=== PATIENT | female | born 1995 | race Caucasian/White ===

== ENCOUNTER 2020-06-20 19:00 | Emergency (ER) | payer SELFPAY ==
[2020-06-20 19:04] VITALS: BP 145/113; PULSE 77; RESP 14; TEMP 35.9; O2SAT 100
--- NOTE | 2020-06-20 19:39 | ED.HEATRA ---
HPI - Head Injury General Chief complaint: Head Injury Stated complaint: fall, head injury Time Seen by Provider: 06/20/20 19:03 History of Present Illness HPI Narrative: 24 yo female w/ h/o htn presents to the ED for a head injury. She fell and struck her head on a metal table leg around 1800 tonight. She was reportedly confused for about 30 minutes afterwards and continues to feel foggy. She also reports headache, dizziness, and dry heaves. She took 800 mg ibuprofen and the head ache has improved. No weakness, numbness, LOC. She is not on a blood thinner. Related Data Allergies Allergy/AdvReac Type Severity Reaction Status Date / Time Penicillins Allergy Hives Verified 06/20/20 19:50 Review of Systems Review of Systems: All systems reviewed & are unremarkable except as noted in HPI and below Constitutional: Constitutional: Denies chills, Reports fatigue, Denies fever(s) and Denies weakness Eyes: Eyes: Reports photophobia ENT: Reports dizziness Cardiovascular: Cardiovascular: Denies chest pain Respiratory: Respiratory: Denies dyspnea Gastrointestinal: Gastrointestinal: Reports nausea and Denies vomiting Genitourinary: Genitourinary: Reports no additional female genitourinary complaints Musculoskeletal: Musculoskeletal: Denies back pain Neurologic: Reports as per HPI [facility] Past Medical History Medical History (Updated 06/20/20 @ 20:04 by Ted Morrissey MD) HTN (hypertension) Social History Social History (Updated 06/20/20 @ 20:05 by Ted Morrissey MD) Smoking status: Never smoker Substance use: never Gender identity (if verbalized by the patient): Female Sexual Orientation (if Verbalized by the Patient): Straight or Heterosexual Exam Const: General: healthy appearing, no acute distress and alert Orientation/consciousness: patient oriented x3 HENMT: Head: normal to inspection Eyes: Conjunctivae: conjunctivae normal Pupils: Equal, round and reactive pupils present EOM: EOMs intact bilaterally Neck: Neck: normal visual inspection and no lymphadenopathy Chest: Chest palpation & inspection: no tenderness Resp: Effort & Inspection: normal respiratory effort Auscultation: clear to auscultation bilaterally, no rales, no rhonchi and no wheezes Cardio: Jugular venous distension: no JVD Rate: regular rate Rhythm: regular rhythm Heart sounds: no murmurs Skin: General skin exam: normal color Neuro: General: patient oriented x3, moves all extremities and no focal motor deficits Cranial nerves: Yes CN's II-XII intact bilaterally and Yes Nystagmus not present Cognition (Neuro): normal cognition Speech: normal speech Gait exam (Neuro): Normal gait present Coordination: [id number] test normal Extrem: General: no edema Psych: Appearance: well kempt Affect: normal affect Course Vital Signs Vital signs: Vital Signs Temperature 35.9 C L 06/20/20 19:04 Pulse Rate 77 06/20/20 19:04 Respiratory Rate 14 06/20/20 19:04 Blood Pressure 145/113 H 06/20/20 19:04 Pulse Oximetry 100 06/20/20 19:04 Temperature 35.9 C L 06/20/20 19:04 Pulse Rate 77 06/20/20 19:04 Respiratory Rate 14 06/20/20 19:04 Blood Pressure 145/113 H 06/20/20 19:04 Pulse Oximetry 100 06/20/20 19:04 MDM - Head Injury MDM Narrative Medical decision making narrative: reassuring exam. No indication for imaging. She does not want any further treament at this time. I will given her information for symptomatic relief. Differential Diagnosis Differential diagnosis: Likely concussion without loss of consciousness and closed head injury Discharge Plan Discharge Clinical Impression: Concussion without loss of consciousness Qualifiers: Encounter type: initial encounter Qualified Code(s): S06.0X0A - Concussion without loss of consciousness, initial encounter Patient Disposition: Home, Self-Care Condition: Stable Instructions: Concussion (ED) Additional Instructions: You
[2020-06-20 20:15] VITALS: BP 126/71; PULSE 72; RESP 16; O2SAT 97
== END 2020-06-20 20:15 | disposition home or self-care (01) ==
PROVIDERS: Emergency Provider Emergency Medicine
DX: S06.0X0A Concussion without loss of consciousness, initial encounter (principal); I10 Essential (primary) hypertension; W01.190A Fall on same level from slipping, tripping and stumbling with subsequent striking against furniture, initial encounter
CPT/HCPCS: 99283

== ENCOUNTER 2022-10-18 08:09 | Emergency (ER) | payer OTHER, SELFPAY ==
--- NOTE | 2022-10-18 08:11 | ED.SKABFB ---
HPI - Skin/Abscess/Foreign Bdy General Chief complaint: Skin/Abscess/Foreign Body Stated complaint: Rash Time Seen by Provider: 10/18/22 08:10 Source: patient Mode of arrival: ambulatory Limitations: no limitations History of Present Illness HPI narrative: Thuy is a 27-year-old female patient presenting to the clinic today with complaints of a rash x6 days. She reports rash is not itchy or painful. Rashes red circular and scaly. She reports that she has recently changed soaps and has been using and non scented soaps since the rash occurred. States that the rash seems to be spreading. Rash started under her breast and has spread to her arms, back, abdomen, and buttocks. Patient reports that she started a new job and the client has a cat that has patches of hair loss Related Data Allergies Allergy/AdvReac Type Severity Reaction Status Date / Time Penicillins AdvReac Mild Hives Verified 10/18/22 08:11 Review of Systems Review of Systems: Pertinent positives per HPI. Patient denies any fever, chills, headache, visual changes, dizziness, cough, runny nose, sore throat, shortness of breath, chest pain, palpitations, nausea, vomiting, diarrhea, constipation, abdominal pain, or any urinary issues. [facility] Past Medical History Medical History HTN (hypertension) Social History Social History Smoking status: Never smoker Substance use: never Gender identity (if verbalized by the patient): Female Sexual Orientation (if Verbalized by the Patient): Straight or Heterosexual Comments At the time of my signature, I reviewed and agree with the nursing past medical, surgical, social, and family history. There is no relevant family history pertinent to the patient complaint. Exam Narrative: General: Well-developed, well nourished, in no apparent distress Head: Normocephalic, atraumatic. Cardio: Regular rate and rhythm, s1 and s2 normal, no murmur appreciated. Resp: Clear to auscultation bilaterally, no rhonchi, rales, wheezing or rubs. Integumentary: [place], warm, and dry, intact without lesion, red, mildly raised, non itching, nonpainful, scaly appearing circular rash under breast, arms, abdomen, back, and buttocks Course Course Emergency Course: Portions of this record may have been created with voice recognition software. Level of Care: Express Care Visit Vital Signs Vital signs: Vital signs reviewed MDM - Skin/Abscess/Foreign Bdy MDM Narrative Medical decision making narrative: At the time of visit patient is resting comfortably on the exam table. I suspect the patient may have tinea corpus. Will send in prescription for Diflucan. Will also send in a prescription for some prednisone taper dose if Diflucan does not help patient may try the prednisone. Did explain to the patient that the Diflucan prescription will be weekly x4 weeks. Supportive measures were discussed with the patient and she voiced understanding of discharge instructions. Contact/transmission information was printed from the CDC regarding tinea corpus and given to the patient. Differential Diagnosis Differential diagnosis: Likely abscess of skin or subcutaneous tissue, viral exanthem, urticaria, herpes zoster, allergic reaction to drug, cellulitis, eczema, insect bites, impetigo and contact dermatitis Discharge Plan Discharge Clinical Impression: Tinea corporis Patient Disposition: Home, Self-Care Condition: Stable Instructions: Antibiotic Form, Tinea Corporis (ED) Additional Instructions: I suspect you may have tinea corporis which is ringworm Recommend checking your animals for any signs of ringworm and treat them a if necessary Take fluconazole as prescribed-if rash does not resolve in 4 weeks recommend taking the prednisone May take Benadryl 25-50 mg every 6 hours as needed for itching Follow-u
[2022-10-18 08:19] VITALS: BP 118/80; PULSE 66; RESP 18; TEMP 36.4; O2SAT 99
== END 2022-10-18 08:49 | disposition home or self-care (01) ==
PROVIDERS: Emergency Provider Nurse Practitioner Family
DX: B35.4 Tinea corporis (principal); I10 Essential (primary) hypertension
CPT/HCPCS: 99213; G0463

== ENCOUNTER 2022-10-23 16:22 | Emergency (ER) | payer OTHER, SELFPAY ==
--- NOTE | 2022-10-23 16:28 | ED.SKABFB ---
HPI - Skin/Abscess/Foreign Bdy General Chief complaint: Skin/Abscess/Foreign Body Stated complaint: rash Time Seen by Provider: 10/23/22 16:29 Source: patient Mode of arrival: ambulatory Limitations: no limitations History of Present Illness HPI narrative: Thuy is a 27-year-old female patient presenting to clinic today with complaints of a rash that is not improving with Diflucan. She was seen by myself last week and diagnosed with tinea corpus. Was given prescription for Diflucan. States the rash has not really improved and she developed a pustule under her breast that had popped. Is concerned that she may have been bit by a spider. Related Data Allergies Allergy/AdvReac Type Severity Reaction Status Date / Time Penicillins AdvReac Mild Hives Verified 10/23/22 16:40 Review of Systems Review of Systems: Pertinent positives per HPI. Patient denies any fever, chills, headache, visual changes, dizziness, cough, runny nose, sore throat, shortness of breath, chest pain, palpitations, nausea, vomiting, diarrhea, constipation, abdominal pain, or any urinary issues. [facility] Past Medical History Medical History HTN (hypertension) Social History Social History Smoking status: Never smoker Substance use: never Gender identity (if verbalized by the patient): Female Sexual Orientation (if Verbalized by the Patient): Straight or Heterosexual Comments At the time of my signature, I reviewed and agree with the nursing past medical, surgical, social, and family history. There is no relevant family history pertinent to the patient complaint. Exam Narrative: General: Well-developed, well nourished, in no apparent distress Head: Normocephalic, atraumatic. Cardio: Regular rate and rhythm, s1 and s2 normal, no murmur appreciated. Resp: Clear to auscultation bilaterally, no rhonchi, rales, wheezing or rubs. Integumentary: [place], warm, and dry, light brown circular rash with central clearing scaling to torso, breast, back, buttocks, hips. 1 small open sore without drainage/induration under the left breast. Course Course Emergency Course: Portions of this record may have been created with voice recognition software. Level of Care: Express Care Visit Vital Signs Vital signs: Vital signs reviewed MDM - Skin/Abscess/Foreign Bdy MDM Narrative Medical decision making narrative: At the time of visit patient is resting on the exam table. I suspect patient has tinea corpus with a possible skin infection to the left breast. Will send and prescription for mupirocin cream and have the patient continue the Diflucan. Dermatology referral was discussed with the patient Differential Diagnosis Differential diagnosis: Likely abscess of skin or subcutaneous tissue, dermatophytosis, allergic reaction to drug, cellulitis, eczema, insect bites, impetigo and contact dermatitis Discharge Plan Discharge Clinical Impression: Tinea corporis, Bacterial skin infection Patient Disposition: Home, Self-Care Condition: Stable Instructions: Antibiotic Form, Tinea Corporis (ED) Additional Instructions: Apply mupirocin to the affected area twice daily x7 days Continue Diflucan as prescribed May take tylenol/motrin for pain Follow-up with dermatology-may call [facility] [phone] Prescriptions: New mupirocin 2 % ointment 1 applic topical BID 7 Days Qty: 22 0RF Follow-up/Referrals: PHYSICIAN,CHILLER OPERATOR [Primary Care Provider] - Time of Disposition: 16:47 Quality NIHSS Nursing Documentation ED NIHSS nursing documentation: reviewed/agree
[2022-10-23 16:33] VITALS: BP 123/81; PULSE 62; RESP 18; TEMP 36.6; O2SAT 99
== END 2022-10-23 17:00 | disposition home or self-care (01) ==
PROVIDERS: Emergency Provider Nurse Practitioner Family
DX: B35.4 Tinea corporis (principal); L08.9 Local infection of the skin and subcutaneous tissue, unspecified; B96.89 Other specified bacterial agents as the cause of diseases classified elsewhere; I10 Essential (primary) hypertension
CPT/HCPCS: 99213; G0463

== ENCOUNTER 2024-02-05 10:05 | Emergency (ER) | payer OTHER, SELFPAY ==
--- NOTE | 2024-02-05 10:18 | ED.GENADULT ---
HPI - General Adult General Chief complaint: Upper Respiratory Infection Stated complaint: sore throat Time Seen by Provider: 02/05/24 10:18 Source: patient Mode of arrival: ambulatory Limitations: no limitations History of Present Illness HPI narrative: 28-year-old female patient presents to the [facility] with complaints of a sore throat for the past 5 days along with cough, fatigue and just overall not feeling well. Patient denies any fevers, body aches or chills. Denies any chest pain or shortness of breath. Denies abdominal pain, nausea, vomiting or diarrhea. Patient states she has been taking [id number] DayQuil and NyQuil and Mucinex for her symptoms. Related Data Home Medications Medication Instructions Recorded Confirmed No Home Medications 02/05/24 02/05/24 Allergies Allergy/AdvReac Type Severity Reaction Status Date / Time Penicillins AdvReac Mild Hives Verified 02/05/24 10:08 Review of Systems Review of Systems: CONSTITUTIONAL: Denies fever, chills, or sweats. EYES: Denies visual changes, redness, or discharge. ENT: Positive rhinorrhea, congestion, sore throat, denies otalgia. CARDIOVASCULAR: Denies chest pain, palpitations, or edema. RESPIRATORY: positive cough denies dyspnea. GASTROINTESTINAL: Denies abdominal pain, nausea, vomiting, or diarrhea. GENITOURINARY: Denies dysuria or hematuria. SKIN: Denies rash or itching. MUSCULOSKELETAL: Denies back pain, joint pain, or myalgia. NEUROLOGIC: positive headache, denies numbness, or weakness. PSYCHIATRIC: Denies anxiety or depression. [facility] Past Medical History Medical History HTN (hypertension) Social History Social History Smoking status: Never smoker Substance use: never Gender identity (if verbalized by the patient): Female Sexual Orientation (if Verbalized by the Patient): Straight or Heterosexual Comments At the time of my signature I agree with nursing past medical history, surgical, social, and family history. There is no relevant family history pertinent to the presenting complaint. Exam Narrative: GENERAL: Well-appearing, well-nourished, and in no acute distress. HEAD: Normocephalic, atraumatic. EYES: PERRLA and EOMI. ENT: Nares with erythema edema noted bilaterally, no rhinorrhea or epistaxis. Mucous membranes moist. posterior pharynx with no erythema, tonsillar enlargement, exudates or lesions present. NECK: Supple. No lymphadenopathy CHEST: Clear to auscultation. No respiratory distress. HEART: Regular rate and rhythm. No murmur heard. Normal peripheral pulses. ABDOMEN: Soft, nontender, nondistended, normal active bowel sounds. EXTREMITIES: Normal range of motion. No edema. SKIN: Warm, dry, no rash. NEURO: No focal deficits. Alert and oriented x3. Course Course Level of Care: Express Care Visit Vital Signs Vital signs: Vital Signs Temperature 36.6 C 02/05/24 10:21 Pulse Rate 85 02/05/24 10:21 Respiratory Rate 16 02/05/24 10:21 Blood Pressure 125/90 02/05/24 10:21 Pulse Oximetry 99 02/05/24 10:21 Oxygen Delivery Room Air 02/05/24 10:21 Temperature 36.6 C 02/05/24 10:21 Pulse Rate 85 02/05/24 10:21 Respiratory Rate 16 02/05/24 10:21 Blood Pressure 125/90 02/05/24 10:21 Pulse Oximetry 99 02/05/24 10:21 Oxygen Delivery Room Air 02/05/24 10:21 vital signs reviewed. Medical Decision Making MDM Narrative Medical decision making narrative: Discussed with patient that her rapid strep test today is negative. We will send the swab to the lab for culture if the culture comes back positive at that time we will call her antibiotics. Discussed with patient to use [id number] medication, warm salt water gargles, hot tea and honey to help alleviate her symptoms. Discussed with patient if she has any worsening symptoms such as increase in shortness of breath, wheezing and she would need to be re-evaluated at that time. Differential Diagnosis Differential Diagnosis: Differential diagnosis: Allergic rhinitis, chronic sinusitis, tonsillitis, acute sinusitis, infectious mononucleosis, seasonal influenza, pertussis, diphtheria, meningococcal disease, viral syndrome, viral bronchitis, RSV, COVID-19 Viral pharyngitis, pharyngitis, group A strep, infectious mononucleosis, gonococcal pharyngitis, exudative pharyngitis, oral candidiasis. Chronic allergies, postnasal drip, GERD, abscess formation, but glottitis, retropharyngeal abscess formation, or airway obstruction. Vital Signs Vital Signs: Vital Signs Temperature 36.6 C 02/05/24 10:21 Pulse Rate 85 02/05/24 10:21 Respiratory Rate 16 02/05/24 10:21 Blood Pressure 125/90 02/05/24 10:21 Pulse Oximetry 99 02/05/24 10:21 Oxygen Delivery Room Air 02/05/24 10:21 Temperature 36.6 C 02/05/24 10:21 Pulse Rate 85 02/05/24 10:21 Respiratory Rate 16 02/05/24 10:21 Blood Pressure 125/90 02/05/24 10:21 Pulse Oximetry 99 02/05/24 10:21 Oxygen Delivery Room Air 02/05/24 10:21 Critical Care Time Critical Care Time Critical Care Time: No Discharge Plan Discharge Clinical Impression: Viral URI Pharyngitis Qualifiers: Pharyngitis/tonsillitis etiology: unspecified etiology Qualified Code(s): J02.9 - Acute pharyngitis, unspecified Patient Disposition: Home, Self-Care Condition: Stable Instructions: Antibiotic Form, Viral Syndrome (ED) Additional Instructions: A sore throat can be caused by an infection from a virus or bacteria. Sore throat can also be caused by postnasal drip, allergies, and exposure to smoke. A viral sore throat last 3-4 days and cannot be treated with antibiotics. One type of sore throat virus, infectious mononucleosis ( mono ), can last for 3 weeks and older children. The germs that cause these infections are contagious and can be spread by coughing or sharing drinks or utensils. Contact her primary care physician or go to the ER if: Your trouble breathing or swallowing because her throat is swollen or sore. You're drooling because it hurts too much to swallow. You're painful lump in your throat go away after 5 days. You're fever is higher than 10 2??F or last longer than 3 days. You have confusion. You are blood in your throat. You're sore throat should feel better within 3-5 days without treatment if it is caused by virus. You may need the following: Ibuprofen or Tylenol as needed for pain or fever Gargle warm salt water Drink more liquids, cold or warm drinks may help soothe her throat. Humidifier in your room. Cough drops, ice, soft foods, or popsicles may help soothe her throat. A spoonful of honey could help with inflammation and soothe her throat. Wash her hands with soap and water, do not share food or drinks, throat away her toothbrush after 72 hours. Prescriptions: No Action No Home Medications Follow-up/Referrals: Helio,MD Berger ([place]) [Primary Care Provider] - Time of Disposition: 10:32
[2024-02-05 10:21] VITALS: BP 125/90; PULSE 85; RESP 16; TEMP 36.6; O2SAT 99
[2024-02-07 10:03] LABS: EDSTREPNEGPOS1 Negative (Negative)
== END 2024-02-05 10:32 | disposition home or self-care (01) ==
PROVIDERS: Emergency Provider Nurse Practitioner Family; PCP Internal Medicine
DX: J06.9 Acute upper respiratory infection, unspecified (principal); J02.9 Acute pharyngitis, unspecified; I10 Essential (primary) hypertension
CPT/HCPCS: 87081; 87880; 99213; G0463

== ENCOUNTER 2024-05-21 12:38 | Emergency (ER) | payer OTHER, SELFPAY ==
[2024-05-21] VITALS (9 sets, daily range): BP systolic 123–151; BP diastolic 78–109; PULSE 79–94; RESP 13–18; TEMP 36.6; O2SAT 97–100
--- NOTE | 2024-05-21 13:52 | ED.GENADULT ---
HPI - General Adult General Chief complaint: Vaginal Bleeding Stated complaint: miscarriage vs uti Time Seen by Provider: 05/21/24 13:07 History of Present Illness HPI narrative: Patient is a 28-year-old female who presents ER with concerns of discomfort around her vagina and vaginal bleeding. Has had prolonged vaginal bleeding and saw her machinist who placed her on progesterone and then a control pill. Her bleeding has slowed and is no longer bright red it is dark in color. No discharge. No fevers or chills or sweats. Began having swelling and pain to left side of her vagina over last 2 days. No fevers or chills. No drainage. Reports lower abdominal cramping. No dysuria. Related Data Allergies Allergy/AdvReac Type Severity Reaction Status Date / Time Penicillins AdvReac Mild Hives Verified 02/05/24 10:08 Review of Systems Review of Systems: All systems reviewed & are unremarkable except as noted in HPI and below Constitutional: Constitutional: Reports no additional constitutional complaints Cardiovascular: Cardiovascular: Reports no additional cardiovascular complaints Respiratory: Respiratory: Reports no additional respiratory complaints Gastrointestinal: Gastrointestinal: Reports no additional gastrointestinal complaints Genitourinary: Genitourinary: Reports no additional female genitourinary complaints [facility] Past Medical History Medical History HTN (hypertension) Social History Social History Smoking status: Never smoker Substance use: never Gender identity (if verbalized by the patient): Female Sexual Orientation (if Verbalized by the Patient): Straight or Heterosexual Exam Narrative: GENERAL: Well-appearing, well-nourished, and in no acute distress. HEAD: Normocephalic, atraumatic. ENT: Mucous membranes moist. CHEST: Clear to auscultation. No respiratory distress. HEART: Regular rate and rhythm. Normal peripheral pulses. ABDOMEN: Soft, mild bilateral lower quadrant tenderness without guarding, nondistended. : External genitalia with a cystic abscess left labial fold. No vesicles. Old blood within the vagina without hemorrhage. EXTREMITIES: Normal range of motion. No edema. SKIN: Warm, dry, no rash. NEURO: Alert and oriented x3. PSYCH: Normal mood and affect. Course Course Emergency Course: Abscess incised and drained. Discharge on oral antibiotics. Recommend stool softener for constipation. Vital Signs Vital signs: Vital Signs Temperature 97.8 F 05/21/24 12:39 Pulse Rate 90 05/21/24 12:39 Respiratory Rate 16 05/21/24 12:39 Blood Pressure 144/78 H 05/21/24 12:39 Pulse Oximetry 99 05/21/24 12:39 Temperature 97.8 F 05/21/24 12:39 Pulse Rate 84 05/21/24 15:01 Respiratory Rate 16 05/21/24 14:06 Blood Pressure 133/92 H 05/21/24 15:01 Pulse Oximetry 97 05/21/24 15:01 Procedures Abscess I/D labial fold: Date of Incision: 05/21/24 Time of Incision: 13:53 Side (if applicable): left Local Anesthetic: lidocaine 1% Amount of anesthesia used (mL): 3 Technique: incised with #11 blade Irrigation: No Packing used?: none I&D Results: Pus Medical Decision Making Vital Signs Vital Signs: Vital Signs Temperature 97.8 F 05/21/24 12:39 Pulse Rate 90 05/21/24 12:39 Respiratory Rate 16 05/21/24 12:39 Blood Pressure 144/78 H 05/21/24 12:39 Pulse Oximetry 99 05/21/24 12:39 Temperature 97.8 F 05/21/24 12:39 Pulse Rate 84 05/21/24 15:01 Respiratory Rate 16 05/21/24 14:06 Blood Pressure 133/92 H 05/21/24 15:01 Pulse Oximetry 97 05/21/24 15:01 Lab Data 05/21/24 13:58 05/21/24 13:58 Labs: Lab Results 05/21/24 05/21/24 Range/Units 13:58 14:10 WBC 9.6 (4.5-10.0) K/mm3 RBC 4.44 (4.2-5.4) M/mm3 Hgb 12.2 (12.0-15.0) g/dL Hct 36.9 L (37.0-47.0) % MCV 83.1 (80-100) fl MCH 27.5 (26-34) pg MCHC 33.1 (32-36) g/dl RDW 12.9 (11.5-14.5) % Plt Count 293 (150-375) k/mm3 MPV 11.7 H (7.4-10.4) fl Immature Gran % (Auto) 0.2 (0-0.5) % Neut % (Auto) 57.8 (45.5-73.1) % Lymph % (Auto) 33.7 (18.3-44.2) % [place] % (Auto) 5.3 (2.6-8.5) % Eos % (Auto) 2.3 (0-4.4) % Baso % (Auto) 0.7 (0.2-1.2) % Lymph # (Auto) 3.24 H (0.9-3.2) K/mm3 [place] # (Auto) 0.5 (0.1-0.6) K/mm3 Eos # (Auto) 0.2 (0-0.3) K/mm3 Baso # (Auto) 0.1 (0.0-0.1) K/mm3 Abs Immat Gran (auto) 0.02 (0.00-0.031) K/mm3 Absolute Neuts (auto) 5.6 (1.3-6.7) K/mm3 Absolute Nucleated RBC 0.000 (0.0-0.012) K/mm3 Nucleated RBC % 0.0 (0.0-0.2) % Sodium 138 (137-145) mmol/L Potassium 4.0 (3.4-5.0) mmol/L Chloride 104 (98-107) mmol/L Carbon Dioxide 24 (22-30) mmol/L Anion Gap 10 (4-12) mmol/L BUN 8 (7-17) mg/dL Creatinine 0.66 L (0.7-1.0) mg/dL Estim Creat Clear Calc 99 ml/min Estimated GFR > 60 (59 - ) Glucose 80 (65-110) mg/dL Calcium 8.9 (8.4-10.2) mg/dL Total Bilirubin 0.4 (0.2-1.3) mg/dL AST 73 H (14-36) U/L ALT 110 H (6-35) U/L Alkaline Phosphatase 70 (38-126) U/L Total Protein 8.0 (6.3-8.2) g/dL Albumin 4.5 (3.5-5.1) g/dL POC Urine HCG, Qual Negative (Negative) Imaging Data Radiologist's impression: ITS Impressions Abdomen/Pelvis CT 05/21/24 15:46 IMPRESSION: 1. No evidence of appendicitis, diverticulitis or intestinal obstruction. 2. constipation. Discharge Plan Discharge Clinical Impression: Abscess of labia, Constipation Patient Disposition: Home, Self-Care Condition: Stable Instructions: Constipation (ED), Abscess (ED) Additional Instructions: Return to the emergency department if you develop severe abdominal pain, severe nausea and vomiting to the point where you are unable to keep down fluids, if you develop chest pain or difficulty breathing, blood in your stool, dizziness or fainting, or if you develop any other new or concerning symptoms as these could be signs of more serious medical illness. Try to stay well hydrated. Patient Language: Kenyan Prescriptions: New docusate sodium [Colace] 100 mg capsule 100 mg PO BID Qty: 14 0RF sulfamethoxazole-trimethoprim [Bactrim DS] 800-160 mg tablet 1 tablet PO Q12H Qty: 14 0RF Follow-up/Referrals: Helio,MD Berger ([place]) [Primary Care Provider] - Alan Oglesby MD [Physician] - 1 Week
[2024-05-21] MEDS: ONDANSETRON INJ 4 MG/2 ML VIAL IV PUSH (14:02)
[2024-05-21] MEDS: MORPHINE SULFATE (*CRX) 4 MG/ML INJ IV PUSH (14:03)
[2024-05-21 14:12] LABS: BEDSIDEPREGUCG Negative (Negative)
[2024-05-21 14:14] LABS: Basophils Absolute Auto 0.1 K/mm3 (0.0-0.1); Basophils Percent Auto 0.7 % (0.2-1.2); Eosinophils Absolute Auto 0.2 K/mm3 (0-0.3); Eosinophils Percent Auto 2.3 % (0-4.4); Hematocrit 36.9 % (37.0-47.0); Hemoglobin 12.2 g/dL (12.0-15.0); Immature Granulocyte Absolute 0.02 K/mm3 (0.00-0.031); Immature Granulocyte Percent A 0.2 % (0-0.5); Lymphocytes Absolute Auto 3.24 K/mm3 (0.9-3.2); Lymphocytes Percent Auto 33.7 % (18.3-44.2); Mean Corpuscular HGB Conc 33.1 g/dl (32-36); Mean Corpuscular Hemoglobin 27.5 pg (26-34); Mean Corpuscular Volume 83.1 fl (80-100); Mean Platelet Volume 11.7 fl (7.4-10.4); Monocytes Absolute Auto 0.5 K/mm3 (0.1-0.6); Monocytes Percent Auto 5.3 % (2.6-8.5); Neutrophils Absolute Auto 5.6 K/mm3 (1.3-6.7); Neutrophils Percent Auto 57.8 % (45.5-73.1); Platelet Count Result 293 k/mm3 (150-375); Red Blood Count 4.44 M/mm3 (4.2-5.4); Red Cell Distribution Width 12.9 % (11.5-14.5); White Blood Count 9.6 K/mm3 (4.5-10.0)
[2024-05-21 14:20] LABS: Alanine Aminotransferase 110 U/L (6-35); Albumin Level 4.5 g/dL (3.5-5.1); Alkaline Phosphatase 70 U/L (38-126); Anion Gap 10 mmol/L (4-12); Aspartate Amino Transferase 73 U/L (14-36); Bilirubin,Total 0.4 mg/dL (0.2-1.3); Blood Urea Nitrogen 8 mg/dL (7-17); Calcium 8.9 mg/dL (8.4-10.2); Carbon Dioxide 24 mmol/L (22-30); Chloride 104 mmol/L (98-107); Estimated CRCL calculation 99 ml/min; Estimated Glomerular Filt Rate > 60; Glucose 80 mg/dL (65-110); Sodium 138 mmol/L (137-145)
== END 2024-05-21 17:10 | disposition home or self-care (01) ==
PROVIDERS: Emergency Provider Emergency Medicine; PCP Internal Medicine
DX: N76.4 Abscess of vulva (principal); K59.00 Constipation, unspecified; I10 Essential (primary) hypertension
CPT/HCPCS: 36415; 56405; 74177; 80053; 81025; 85025; 96374; 96375; 99284; J2270; J2405; Q9967